=== PATIENT | female | born 1965 ===

== ENCOUNTER 2021-03-09 17:22 | Inpatient (IN) ==
[2021-03-09 18:45] LABS: Bacteria,Urine Few per hpf (None-Few); Bilirubin,Urine Negative (Negative); Blood,Urine Moderate (Negative); Clarity,Urine Ex.Turbid (Clear); Color,Urine Dark-Yellow (Yellow); Glucose,Urine (UA) Normal (Normal); Ketones,Urine Negative (Negative); Leukocyte Esterase,Urine Large (Negative); Mucus,Urine Few per lpf (None-Few); Nitrite,Urine Positive (Negative); Protein,Urine 200 mg/dL (Neg-Trace); RBC,Urine 30-50 per hpf (0-3); Specific Gravity,Urine 1.023 (1.010-1.025); Squamous Epithelial Cell,Urine Moderate per hpf (None-Few); Urobilinogen,Urine Normal (Normal); WBC,Urine TNTC per hpf (0-3)
[2021-03-09] MEDS ORDERED: *HR* HYDROmorphone (PF) 1 MG/ML SYRINGE IVP ONE ×2 (19:18→19:25)
[2021-03-09] MEDS ORDERED: Cefepime HCl 2,000 MG in 0.9 % Sodium Chloride Mini Bag 100 ML IVPB ONE (19:21)
[2021-03-09 19:23] LABS: Basophils # 0.1 K/mcL (0.0-0.2); Basophils % 0.7 %; Eosinophils # 0.3 K/mcL (0.0-0.6); Eosinophils % 2.7 %; Hematocrit 43.6 % (35.3-44.9); Hemoglobin 14.5 g/dL (11.5-15.4); Immature Granulocytes % 0.9 % (0-4); Lymphocytes # 2.2 K/mcL (0.6-4.6); Lymphocytes % 23.1 %; Mean Corpuscular HGB Conc 33.3 g/dL (31.6-35.5); Mean Corpuscular Hemoglobin 29.8 pg (28.0-33.3); Mean Corpuscular Volume 89.7 fL (83.0-100.0); Mean Platelet Volume 8.8 fL (9.4-12.4); Monocytes # 0.8 K/mcL (0.0-1.3); Monocytes % 8.5 %; Platelet Count 439 K/mcL (140-400); Red Blood Count 4.86 M/mcL (3.82-4.97); Red Cell Distribution Width 13.7 % (11.5-14.5); Segmented Neutrophils % 64.1 %; White Blood Count 9.4 K/mcL (4.3-11.1)
[2021-03-09] MEDS ORDERED: 0.9 % Sodium Chloride 1,000 ML IVC ONE (19:30)
[2021-03-09] MEDS: Ondansetron 4 MG/2 ML VIAL IVP PRN (19:33)
[2021-03-09 19:43] LABS: Alanine Aminotransferase 23 Units/L (7-52); Albumin 4.2 g/dL (3.5-5.7); Albumin/Globulin Ratio 1.4 (1.1-2.2); Alkaline Phosphatase 59 Units/L (34-104); Amylase 36 Units/L (29-103); Aspartate Amino Transferase 20 Units/L (13-39); BUN/Creatinine Ratio 14 (6-26); Bilirubin,Direct 0.1 mg/dL (0.0-0.2); Bilirubin,Indirect 0.5 mg/dL (0.0-1.0); Bilirubin,Total 0.6 mg/dL (0.3-1.0); Blood Urea Nitrogen 11 mg/dL (6-20); Calcium 9.4 mg/dL (8.6-10.3); Carbon Dioxide 23 mEq/L (23-29); Chloride 103 mEq/L (98-107); Globulin 2.9 g/dL (2.4-3.5); Glucose 84 mg/dL (70-105); Lipase 11 Units/L (11-82); Osmolality,Calculated 285 (280-300); Potassium 3.4 mEq/L (3.5-5.1); Sodium 138 mEq/L (136-145); Total Protein 7.1 g/dL (6.4-8.9); eGFR For African Americans > 60 (> 60); eGFR For Non-African Americans > 60 (> 60)
[2021-03-09] MEDS ORDERED: cefTRIAXone 2,000 MG in 0.9 % Sodium Chloride 20 ML IVPB ONE (20:34)
[2021-03-09] MEDS ORDERED: Naloxone 0.4 MG/ML INJ IVP PRN (22:00)
[2021-03-09] MEDS ORDERED: 0.9 % Sodium Chloride 1,000 ML IVC SCH (22:00)
[2021-03-09] MEDS ORDERED: Ondansetron 4 MG/2 ML VIAL IVP PRN (22:00)
[2021-03-09] MEDS: Ketorolac 15 MG/ML VIAL IVP PRN (23:51)
[2021-03-10] MEDS: Ketorolac 15 MG/ML VIAL IVP PRN ×3 (05:37→20:05)
[2021-03-10 06:32] LABS: Hematocrit 40.4 % (35.3-44.9); Mean Corpuscular HGB Conc 31.9 g/dL (31.6-35.5); Mean Corpuscular Hemoglobin 29.7 pg (28.0-33.3); Mean Corpuscular Volume 93.1 fL (83.0-100.0); Mean Platelet Volume 8.9 fL (9.4-12.4); Platelet Count 378 K/mcL (140-400); Red Blood Count 4.34 M/mcL (3.82-4.97); Red Cell Distribution Width 13.8 % (11.5-14.5); White Blood Count 10.9 K/mcL (4.3-11.1)
[2021-03-10 06:36] LABS: Hemoglobin 12.9 g/dL (11.5-15.4)
[2021-03-10 06:45] LABS: INR 1.1; Prothrombin Time 12.3 Seconds (9.4-12.1)
[2021-03-10 06:47] LABS: Activated Partial Thrombo Time 27.3 Seconds (26.0-36.0)
[2021-03-10 06:54] LABS: BUN/Creatinine Ratio 15 (6-26); Blood Urea Nitrogen 15 mg/dL (6-20); Calcium 8.4 mg/dL (8.6-10.3); Carbon Dioxide 26 mEq/L (23-29); Chloride 106 mEq/L (98-107); Glucose 114 mg/dL (70-105); Osmolality,Calculated 288 (280-300); Potassium 3.8 mEq/L (3.5-5.1); Sodium 138 mEq/L (136-145); eGFR For African Americans > 60 (> 60); eGFR For Non-African Americans 57 (> 60)
[2021-03-10] MEDS ORDERED: Morphine Sulfate 2 MG/ML SYRINGE IVP ONE ×3 (10:21→18:52)
[2021-03-10] MEDS ORDERED: *HR* FentaNYL (PF) 100 MCG/2 ML VIAL ONE ×3 (10:41→12:18)
[2021-03-10] MEDS ORDERED: 0.9 % Sodium Chloride 500 ML ONE ×2 (10:42→10:54)
[2021-03-10] MEDS ORDERED: *HR* Midazolam HCl 2 MG/2 ML VIAL ONE ×3 (10:42→12:19)
[2021-03-10] MEDS ORDERED: *HR* FentaNYL (PF) 100 MCG/2 ML VIAL IVP ONE ×3 (10:47→12:13)
[2021-03-10] MEDS ORDERED: *HR* Midazolam HCl 2 MG/2 ML VIAL IVP ONE ×3 (10:47→12:13)
[2021-03-10] MEDS ORDERED: Ampicillin/Sulbactam 1,500 MG in 0.9 % Sodium Chloride Mini Bag 100 ML IVPB ONE (11:43)
[2021-03-10] MEDS ORDERED: Isovue-300 50ML VIAL IVP ONE ×2 (12:01→12:06)
[2021-03-10] MEDS: 0.9 % Sodium Chloride 1,000 ML IVC SCH (13:09)
[2021-03-10] MEDS: cefTRIAXone 1,000 MG in Water for inj. (sterile) 10 ML IVP SCH (15:16)
[2021-03-10] MEDS: predniSONE 5 MG TABLET PO SCH (15:17)
[2021-03-10] MEDS: Ondansetron 4 MG/2 ML VIAL IVP PRN (15:23)
[2021-03-11] MEDS: Ketorolac 15 MG/ML VIAL IVP PRN ×4 (02:14→21:07)
[2021-03-11] MEDS: 0.9 % Sodium Chloride 1,000 ML IVC SCH ×2 (02:14→14:44)
[2021-03-11] MEDS: cefTRIAXone 1,000 MG in Water for inj. (sterile) 10 ML IVP SCH (08:54)
[2021-03-11] MEDS: predniSONE 5 MG TABLET PO SCH (08:55)
[2021-03-11] MEDS: BuPROPion SR (12 HR) 150 MG TABLET PO SCH (08:56)
[2021-03-11] MEDS: Morphine Sulfate 2 MG/ML SYRINGE IVP PRN ×2 (09:39→21:08)
[2021-03-11 13:21] LABS: Hemoglobin 12.9 g/dL (11.5-15.4); Mean Corpuscular HGB Conc 31.5 g/dL (31.6-35.5); Mean Corpuscular Hemoglobin 29.6 pg (28.0-33.3); Mean Platelet Volume 8.9 fL (9.4-12.4); Platelet Count 392 K/mcL (140-400); Red Blood Count 4.36 M/mcL (3.82-4.97); Red Cell Distribution Width 14.1 % (11.5-14.5); White Blood Count 12.4 K/mcL (4.3-11.1)
[2021-03-11 13:51] LABS: BUN/Creatinine Ratio 14 (6-26); Blood Urea Nitrogen 12 mg/dL (6-20); Calcium 8.6 mg/dL (8.6-10.3); Carbon Dioxide 27 mEq/L (23-29); Chloride 106 mEq/L (98-107); Glucose 100 mg/dL (70-105); Osmolality,Calculated 286 (280-300); Potassium 4.1 mEq/L (3.5-5.1); Sodium 138 mEq/L (136-145); eGFR For African Americans > 60 (> 60); eGFR For Non-African Americans > 60 (> 60)
[2021-03-12] MEDS: Ketorolac 15 MG/ML VIAL IVP PRN ×4 (03:03→22:25)
[2021-03-12] MEDS: Morphine Sulfate 2 MG/ML SYRINGE IVP PRN ×3 (03:04→21:07)
[2021-03-12] MEDS: 0.9 % Sodium Chloride 1,000 ML IVC SCH (03:21)
[2021-03-12] MEDS: Ondansetron 4 MG/2 ML VIAL IVP PRN ×3 (05:30→17:46)
[2021-03-12 06:33] LABS: Hematocrit 40.5 % (35.3-44.9); Hemoglobin 12.8 g/dL (11.5-15.4); Mean Corpuscular HGB Conc 31.6 g/dL (31.6-35.5); Mean Corpuscular Hemoglobin 29.5 pg (28.0-33.3); Mean Corpuscular Volume 93.3 fL (83.0-100.0); Platelet Count 399 K/mcL (140-400); Red Blood Count 4.34 M/mcL (3.82-4.97); Red Cell Distribution Width 13.9 % (11.5-14.5)
[2021-03-12 06:56] LABS: BUN/Creatinine Ratio 15 (6-26); Blood Urea Nitrogen 12 mg/dL (6-20); Carbon Dioxide 28 mEq/L (23-29); Chloride 104 mEq/L (98-107); Potassium 4.1 mEq/L (3.5-5.1); Sodium 138 mEq/L (136-145)
[2021-03-12 06:57] LABS: Calcium 8.6 mg/dL (8.6-10.3); Glucose 92 mg/dL (70-105); Osmolality,Calculated 285 (280-300); eGFR For African Americans > 60 (> 60); eGFR For Non-African Americans > 60 (> 60)
[2021-03-12] MEDS: BuPROPion SR (12 HR) 150 MG TABLET PO SCH ×2 (09:20→09:31)
[2021-03-12] MEDS: cefTRIAXone 1,000 MG in Water for inj. (sterile) 10 ML IVP SCH (09:20)
[2021-03-12] MEDS: predniSONE 5 MG TABLET PO SCH (09:20)
[2021-03-12] MEDS ORDERED: Sennosides/Docusate Sodium TABLET PO PRN ×2 (12:06→18:51)
[2021-03-12] MEDS ORDERED: *HR* Midazolam HCl 2 MG/2 ML VIAL ONE (13:36)
[2021-03-12] MEDS ORDERED: *HR* FentaNYL (PF) 100 MCG/2 ML VIAL ONE ×2 (13:36→16:50)
[2021-03-12] MEDS ORDERED: Lidocaine -MPF 2% 2 ML VIAL ONE (13:36)
[2021-03-12] MEDS ORDERED: Ondansetron 4 MG/2 ML VIAL ONE (13:36)
[2021-03-12] MEDS ORDERED: Isovue-300 50ML VIAL ONE (15:54)
[2021-03-12] MEDS ORDERED: Lidocaine HCL 4 ML Topical Solution (Laryng-O-Jet Kit Sterile Pak) TP ONE (15:57)
[2021-03-12] MEDS ORDERED: *HR* Rocuronium Bromide 50 MG/5 ML VIAL ONE (15:57)
[2021-03-12] MEDS ORDERED: *HR* Succinylcholine 200 MG/10 ML VIAL IVP ONE (15:57)
[2021-03-12] MEDS ORDERED: *HR* Labetalol 20 MG/4 ML SYRINGE IVP ONE (16:47)
[2021-03-12] MEDS ORDERED: *HR* HYDROMORPHONE 2 MG/ML VIAL ONE (17:20)
[2021-03-12] MEDS ORDERED: Ringers Solution, Lactated 1,000 ML ONE (17:30)
[2021-03-12] MEDS ORDERED: Acetaminophen IV 1,000 MG/100 ML BAG IVPB ONE (18:03)
[2021-03-12] MEDS ORDERED: *HR* HYDROmorphone 2 MG/ML SYRINGE IVP PRN (18:04)
[2021-03-12] MEDS ORDERED: 0.9 % Sodium Chloride 1,000 ML IVC SCH (18:51)
[2021-03-12] MEDS ORDERED: Ondansetron 4 MG/2 ML VIAL IVP PRN ×2 (18:51)
[2021-03-12] MEDS ORDERED: Naloxone 0.4 MG/ML INJ IVP PRN (18:51)
[2021-03-13] MEDS: Morphine Sulfate 2 MG/ML SYRINGE IVP PRN (04:25)
[2021-03-13] MEDS: Ketorolac 15 MG/ML VIAL IVP PRN ×2 (04:26→10:28)
[2021-03-13 08:35] VITALS: BP 136/77
[2021-03-13] MEDS ORDERED: predniSONE 5 MG TABLET PO SCH (09:00)
[2021-03-13] MEDS ORDERED: cefTRIAXone 1,000 MG in Water for inj. (sterile) 10 ML IVP SCH (09:00)
[2021-03-13] MEDS ORDERED: BuPROPion SR (12 HR) 150 MG TABLET PO SCH (09:00)
[2021-03-13 09:36] LABS: Hematocrit 39.9 % (35.3-44.9); Hemoglobin 13.4 g/dL (11.5-15.4); Mean Corpuscular HGB Conc 33.6 g/dL (31.6-35.5); Mean Corpuscular Hemoglobin 30.2 pg (28.0-33.3); Mean Corpuscular Volume 89.9 fL (83.0-100.0); Mean Platelet Volume 9.1 fL (9.4-12.4); Platelet Count 443 K/mcL (140-400); Red Blood Count 4.44 M/mcL (3.82-4.97); Red Cell Distribution Width 13.5 % (11.5-14.5)
[2021-03-13 09:38] LABS: White Blood Count 19.1 K/mcL (4.3-11.1)
[2021-03-13 09:55] LABS: BUN/Creatinine Ratio 12 (6-26); Blood Urea Nitrogen 9 mg/dL (6-20); Calcium 9.1 mg/dL (8.6-10.3); Carbon Dioxide 23 mEq/L (23-29); Chloride 102 mEq/L (98-107); Glucose 135 mg/dL (70-105); Osmolality,Calculated 283 (280-300); Potassium 3.9 mEq/L (3.5-5.1); Sodium 136 mEq/L (136-145); eGFR For African Americans > 60 (> 60); eGFR For Non-African Americans > 60 (> 60)
== END 2021-03-13 11:25 | disposition home or self-care (01) | DRG 661 ==
LOC: EMEROOARM 17:22 → 3ANU 17:22
PROVIDERS: ADMIT Internal Medicine; ATTEND Internal Medicine